=== PATIENT | male | born 1980 | race Caucasian/White ===

== ENCOUNTER 2016-09-01 14:39 | Emergency (ER) | payer MEDICARE, MEDICAID ==
[~2016-09-01 14:39] MED LIST: 'PARAFON FORTE500 M1 PO; ABILIFY15 MG PO; AMLODIPINE BESYL5 MG PO; AMOXICILLIN500 MG PO; ANTIVERT25 MG PO; ANUSOL-HC25 MG RC; AUGMENTIN 875 M1 TAB PO; AUGMENTIN 875875 MG PO; BLOOD PRESSURE MED; BP MED; CATAFLAM50 MG PO; CIPROFLOXACIN500 MG PO; COLACE100 MG PO; FIORICET 325 MG1 TAB PO; FLAGYL500 MG PO; FLEXERIL5 MG PO; Fioricet 325 MG1 TAB PO; HYDROCODONE BIT1 T11 PO; IBU-8800 MG PO; INDERAL LA60 MG PO; INVEGA3 MG PO; KEFLEX 500 MG E2 CAP PO; LEVOTHYROXIN0.025 M1 PO; LODINE 400MG400 MG PO; LOMOTIL 0.025 M1 TA1 PO; LOMOTIL 0.025 M1 TAB PO; MIDRIN (DURADR1 CAP PO; MIRAPEX1 MG PO; MIRTAZAPINE30 MG PO; MOTRIN800 MG PO; NAPROSYN250 MG PO; NAPROSYN500 MG PO; NAPROXEN500 MG PO; NORTRIPTYLINE25 MG PO; OMEPRAZOLE MAGN20 MG PO; PHENERGAN25 M1 PO; PHENERGAN25 MG RC; PRILOSEC20 MG PO; PROPANOLOL PO; PROPRANOLOL ER80 MG PO; PROPRANOLOL HC120 MG PO; PROPRANOLOL HCL80 M1 PO; RISPERDAL1 MG PO; ROBAXIN750 MG PO; SYNTHROID0.025 MG PO; Sarafem20 MG PO; TOBREX OPHTH S2.5 ML OPH; TOPAMAX50 MG PO; TORADOL10 MG PO; TRAMADOL HCL50 MG PO; TRAZODONE50 MG PO; ULTRAM50 MG PO; VICODIN 5/500 505 MG PO; VICODIN ES 7501 TAB PO; VISTARIL25 M1 PO; VITAMIN D-32000 UNI1 PO; VITAMIN D32000 IU PO; VOLTAREN50 M1 PO; XANAX0.25 MG PO; ZITHROMAX TRI-500 MG PO; ZITHROMAX Z PA250 MG PO; ZOFRAN ODT4 MG PO; ZOFRAN4 MG PO; ZOLOFT100 MG PO; ZOLOFT20 MG/ML PO; ZYRTEC10 MG PO
[2016-09-01 14:54] VITALS: BP 151/89
[2016-09-01] MEDS ORDERED: Zofran4 MG PO (16:02)
[2016-09-01] MEDS ORDERED: NAPROSYN500 MG PO (16:02)
== END 2016-09-01 16:08 | disposition home or self-care (01) ==
LOC: ED 14:39
DX: R51 Headache (principal); Z79.899 Other long term (current) drug therapy; Z88.8 Allergy status to other drugs, medicaments and biological substances

== ENCOUNTER 2017-01-07 17:20 | Emergency (ER) | payer MEDICARE, MEDICAID ==
[~2017-01-07] VITALS: Wt 82.1 kg
[~2017-01-07 17:20] MED LIST changes: +Zofran4 MG PO
[2017-01-07 17:27] VITALS: BP 157/87
[2017-01-07] MEDS ORDERED: HYDROCODONE BIT1 T11 PO (19:21)
[2017-01-07] MEDS ORDERED: Motrin,Rufen800 MG PO (19:21)
== END 2017-01-07 22:14 | disposition home or self-care (01) ==
LOC: ED 17:20
DX: S39.012A Strain of muscle, fascia and tendon of lower back, initial encounter (principal); S46.912A Strain of unspecified muscle, fascia and tendon at shoulder and upper arm level, left arm, initial encounter; S16.1XXA Strain of muscle, fascia and tendon at neck level, initial encounter; Z88.8 Allergy status to other drugs, medicaments and biological substances; Z79.899 Other long term (current) drug therapy; F17.200 Nicotine dependence, unspecified, uncomplicated; W17.2XXA Fall into hole, initial encounter; Y93.89 Activity, other specified; Y92.89 Other specified places as the place of occurrence of the external cause; Y99.8 Other external cause status

== ENCOUNTER 2017-02-16 09:49 | Emergency (ER) | payer OTHER, MEDICARE, MEDICAID ==
[~2017-02-16] VITALS: Ht 170.1 cm; Wt 79.4 kg
[~2017-02-16 09:49] MED LIST changes: +Motrin,Rufen800 MG PO
[2017-02-16] MEDS ORDERED: 'PARAFON FORTE500 M1 PO (09:54)
[2017-02-16] MEDS ORDERED: NAPROSYN500 MG PO (09:54)
[2017-02-16 12:11] VITALS: BP 136/72
== END 2017-02-16 12:23 | disposition home or self-care (01) ==
LOC: ED 09:49
DX: M54.2 Cervicalgia (principal); M25.512 Pain in left shoulder; R07.89 Other chest pain; R03.0 Elevated blood-pressure reading, without diagnosis of hypertension; Z79.899 Other long term (current) drug therapy; Z88.8 Allergy status to other drugs, medicaments and biological substances; Z88.6 Allergy status to analgesic agent; V49.88XA Car occupant (driver) (passenger) injured in other specified transport accidents, initial encounter; Y93.89 Activity, other specified; Y92.413 State road as the place of occurrence of the external cause; Y99.9 Unspecified external cause status

== ENCOUNTER 2017-03-22 21:01 | Emergency (ER) | payer MEDICARE, MEDICAID ==
[~2017-03-22] VITALS: Ht 170.1 cm; Wt 79.4 kg
[2017-03-22 21:11] VITALS: BP 153/103
== END 2017-03-22 22:48 | disposition home or self-care (01) ==
LOC: ED 21:01
DX: M54.30 Sciatica, unspecified side (principal); F41.9 Anxiety disorder, unspecified; G43.909 Migraine, unspecified, not intractable, without status migrainosus; F10.10 Alcohol abuse, uncomplicated; Y90.9 Presence of alcohol in blood, level not specified; Z91.410 Personal history of adult physical and sexual abuse; Z88.8 Allergy status to other drugs, medicaments and biological substances

== ENCOUNTER 2017-08-16 22:14 | Emergency (ER) | payer MEDICARE, MEDICAID ==
[~2017-08-16] VITALS: Ht 175.2 cm; Wt 81.6 kg
[2017-08-16 23:25] VITALS: BP 126/72
== END 2017-08-16 23:33 | disposition home or self-care (01) ==
LOC: ED 22:14
DX: F41.9 Anxiety disorder, unspecified (principal); F17.200 Nicotine dependence, unspecified, uncomplicated; Z88.8 Allergy status to other drugs, medicaments and biological substances

== ENCOUNTER 2017-08-20 19:14 | Emergency (ER) | payer MEDICARE, MEDICAID ==
[~2017-08-20] VITALS: Ht 170.1 cm; Wt 83.9 kg
[2017-08-20 19:25] VITALS: BP 158/106
== END 2017-08-20 20:48 | disposition home or self-care (01) ==
LOC: ED 19:14
DX: R51 Headache (principal); Z79.899 Other long term (current) drug therapy; Z88.6 Allergy status to analgesic agent; Z88.8 Allergy status to other drugs, medicaments and biological substances

== ENCOUNTER 2019-03-18 23:39 | Emergency (ER) | payer MEDICARE ==
[~2019-03-18] VITALS: Ht 170.1 cm; Wt 79.8 kg
[2019-03-19] MEDS ORDERED: PROPRANOLOL HCL60 MG PO (00:02)
[2019-03-19 00:12] VITALS: BP 168/84
== END 2019-03-19 00:17 | disposition home or self-care (01) ==
LOC: ED 23:39
DX: F41.9 Anxiety disorder, unspecified (principal); I10 Essential (primary) hypertension; Z79.899 Other long term (current) drug therapy; Z88.6 Allergy status to analgesic agent; Z88.8 Allergy status to other drugs, medicaments and biological substances

== ENCOUNTER → 2019-07-04 | Outpatient (CLI) | payer MEDICARE ==
[~2019-07-04] MED LIST changes: +PROPRANOLOL HCL60 MG PO
[2019-07-04 09:42] LABS: BASO # 0.1 10*3/uL (0.0-0.1); EOS # 0.3 10*3/uL (0.0-0.4); EOS % 3.8 % (1.0-4.0); HEMATOCRIT 48.5 % (42.0-52.0); HEMOGLOBIN 16.3 g/dl (14.0-18.0); LYMPH # 2.6 10*3/uL (1.3-4.4); LYMPH % 37.1 % (27.0-41.0); MEAN CELL VOLUME 88.2 fl (80.0-94.0); MEAN CORPUSCULAR HGB 29.6 pg (27.0-31.0); MEAN CORPUSCULAR HGB CONC 33.6 g/dl (33.0-37.0); MEAN PLATELET VOLUME 10.6 fl (9.6-12.3); MONO # 0.7 10*3/uL (0.1-1.0); MONO % 10.8 % (3.0-9.0); NEUT # 3.2 10*3/uL (2.3-7.9); NEUT % 47.2 % (47.0-73.0); PLATELET COUNT AUTOMATED 279 10*3/uL (130-400); RED CELL DISTRI WIDTH 12.2 % (0-14.5); WHITE BLOOD COUNT 6.9 10*3/uL (4.8-10.8)
[2019-07-04 10:11] LABS: ALBUMIN 3.9 gm/dl (3.1-4.5); ALKALINE PHOSPHATASE 98 U/L (45-117); BUN 12 mg/dl (7-24); CHLORIDE 110 mmol/L (98-107); CHOLESTEROL 173 mg/dL (<200); CREATININE 0.93 mg/dL (0.70-1.30); FREE T4 0.98 ng/dl (0.76-1.46); HDL CHOLESTEROL 33 mg/dl (40-60); LDL CHOLESTEROL 101 mg/dL (9-159); POTASSIUM 4.1 mmol/L (3.5-5.1); SGOT/AST 14 IU/L (3-35); SGPT/ALT 24 U/L (12-78); SODIUM 141 mmol/L (136-145); TOTAL PROTEIN 7.5 gm/dL (6.4-8.2); TRIGLYCERIDES 194 mg/dl (<150); VLDL CHOLESTEROL 39 mg/dL (6-40)
[2019-07-04 10:52] LABS: VITAMIN D, 25-HYDROXY 20.5 ng/mL (30-100)
== END | disposition home or self-care (01) ==
LOC: LAB 09:15
PROVIDERS: Internal Medicine
DX: I10 Essential (primary) hypertension (principal); E78.2 Mixed hyperlipidemia; E11.9 Type 2 diabetes mellitus without complications; E55.9 Vitamin D deficiency, unspecified

== ENCOUNTER 2019-11-08 00:03 | Emergency (ER) | payer MEDICARE ==
[~2019-11-08] VITALS: Ht 170.1 cm; Wt 77.1 kg
[2019-11-08] MEDS ORDERED: AMOXICILLIN500 M2 PO (00:21)
[2019-11-08 00:33] VITALS: BP 165/110
== END 2019-11-08 00:37 | disposition home or self-care (01) ==
LOC: ED 00:03 → EDBD 00:07 → ED 00:07
DX: K08.89 Other specified disorders of teeth and supporting structures (principal); I10 Essential (primary) hypertension; G43.909 Migraine, unspecified, not intractable, without status migrainosus; F32.9 Major depressive disorder, single episode, unspecified; F41.9 Anxiety disorder, unspecified; R56.9 Unspecified convulsions; Z88.8 Allergy status to other drugs, medicaments and biological substances; Z79.899 Other long term (current) drug therapy

== ENCOUNTER 2019-11-24 15:29 | Emergency (ER) | payer MEDICARE ==
[~2019-11-24] VITALS: Ht 170.1 cm; Wt 77.1 kg
[~2019-11-24 15:29] MED LIST changes: +AMOXICILLIN500 M2 PO
[2019-11-24 15:48] VITALS: BP 156/92
[2019-11-24 16:46] LABS: BASO # 0.1 10*3/uL (0.0-0.1); BASO % 1.1 % (0.0-1.0); EOS # 0.2 10*3/uL (0.0-0.4); EOS % 3.2 % (1.0-4.0); HEMATOCRIT 44.9 % (42.0-52.0); LYMPH # 1.7 10*3/uL (1.3-4.4); MEAN CELL VOLUME 88.9 fl (80.0-94.0); MEAN CORPUSCULAR HGB 29.7 pg (27.0-31.0); MEAN CORPUSCULAR HGB CONC 33.4 g/dl (33.0-37.0); MEAN PLATELET VOLUME 10.4 fl (9.6-12.3); MONO # 0.8 10*3/uL (0.1-1.0); MONO % 12.6 % (3.0-9.0); NEUT # 3.8 10*3/uL (2.3-7.9); NEUT % 56.8 % (47.0-73.0); PLATELET COUNT AUTOMATED 229 10*3/uL (130-400); RED BLOOD COUNT 5.05 10*6/uL (4.50-5.90); RED CELL DISTRI WIDTH 12.5 % (0-14.5); WHITE BLOOD COUNT 6.7 10*3/uL (4.8-10.8)
[2019-11-24 17:06] LABS: ALBUMIN 3.5 gm/dl (3.1-4.5); ALKALINE PHOSPHATASE 95 U/L (45-117); BUN 13 mg/dl (7-24); CHLORIDE 109 mmol/L (98-107); CREATININE 0.84 mg/dL (0.70-1.30); SGOT/AST 15 IU/L (3-35); SGPT/ALT 28 U/L (12-78); SODIUM 141 mmol/L (136-145); TOTAL PROTEIN 7.1 gm/dL (6.4-8.2)
== END 2019-11-24 18:39 | disposition home or self-care (01) ==
LOC: ED 15:29
PROVIDERS: Emergency Medicine
DX: E86.0 Dehydration (principal); R35.0 Frequency of micturition; R53.83 Other fatigue; G43.909 Migraine, unspecified, not intractable, without status migrainosus; I10 Essential (primary) hypertension; Z88.8 Allergy status to other drugs, medicaments and biological substances

== ENCOUNTER → 2019-12-09 | Outpatient (CLI) | payer MEDICARE | END | disposition home or self-care (01) | LOC: CARD 15:06 | DX: R07.9 Chest pain, unspecified (principal) ==

== ENCOUNTER → 2020-12-28 | Outpatient (CLI) | payer MEDICARE ==
[2020-12-28 15:05] LABS: BASO # 0.1 10*3/uL (0.0-0.1); BASO % 0.7 % (0.0-1.0); EOS # 0.2 10*3/uL (0.0-0.4); EOS % 3.1 % (1.0-4.0); HEMATOCRIT 47.6 % (42.0-52.0); LYMPH # 2.2 10*3/uL (1.3-4.4); LYMPH % 32.1 % (27.0-41.0); MEAN CELL VOLUME 88.6 fl (80.0-94.0); MEAN CORPUSCULAR HGB 29.2 pg (27.0-31.0); MEAN PLATELET VOLUME 11.2 fl (9.6-12.3); MONO # 0.8 10*3/uL (0.1-1.0); MONO % 11.8 % (3.0-9.0); NEUT # 3.5 10*3/uL (2.3-7.9); PLATELET COUNT AUTOMATED 304 10*3/uL (130-400); RED BLOOD COUNT 5.37 10*6/uL (4.50-5.90); WHITE BLOOD COUNT 6.7 10*3/uL (4.8-10.8)
[2020-12-28 15:38] LABS: ALBUMIN 4.1 gm/dl (3.1-4.5); ALKALINE PHOSPHATASE 93 U/L (45-117); BUN 12 mg/dl (7-24); CHLORIDE 111 mmol/L (98-107); CHOLESTEROL 180 mg/dL (<200); CPK 195 U/L (39-308); CREATININE 0.81 mg/dL (0.70-1.30); LDL CHOLESTEROL 110 mg/dL (9-159); POTASSIUM 4.3 mmol/L (3.5-5.1); SGOT/AST 23 IU/L (3-35); SGPT/ALT 33 U/L (12-78); SODIUM 141 mmol/L (136-145); TRIGLYCERIDES 195 mg/dl (<150)
[2020-12-28 15:43] LABS: VITAMIN D, 25-HYDROXY 28.2 ng/mL (30-100)
== END | disposition home or self-care (01) ==
LOC: LAB 13:55
PROVIDERS: ATTEND Internal Medicine
DX: I10 Essential (primary) hypertension (principal); R53.81 Other malaise; R79.89 Other specified abnormal findings of blood chemistry; E55.9 Vitamin D deficiency, unspecified; D51.9 Vitamin B12 deficiency anemia, unspecified; D52.9 Folate deficiency anemia, unspecified; E78.2 Mixed hyperlipidemia; E03.9 Hypothyroidism, unspecified

== ENCOUNTER → 2020-12-30 | Outpatient (CLI) | payer OTHER | END | disposition home or self-care (01) | LOC: US 11:33 | PROVIDERS: ATTEND Internal Medicine | DX: R42 Dizziness and giddiness (principal) ==

== ENCOUNTER → 2021-02-15 | Outpatient (CLI) | payer MEDICARE ==
[2021-02-15 10:25] LABS: BASO # 0.1 10*3/uL (0.0-0.1); BASO % 0.9 % (0.0-1.0); EOS # 0.2 10*3/uL (0.0-0.4); EOS % 2.9 % (1.0-4.0); HEMATOCRIT 49.9 % (42.0-52.0); LYMPH # 1.8 10*3/uL (1.3-4.4); LYMPH % 27.7 % (27.0-41.0); MEAN CELL VOLUME 87.5 fl (80.0-94.0); MEAN CORPUSCULAR HGB 29.5 pg (27.0-31.0); MEAN CORPUSCULAR HGB CONC 33.7 g/dl (33.0-37.0); MEAN PLATELET VOLUME 10.2 fl (9.6-12.3); MONO # 0.6 10*3/uL (0.1-1.0); MONO % 9.2 % (3.0-9.0); NEUT # 3.9 10*3/uL (2.3-7.9); PLATELET COUNT AUTOMATED 299 10*3/uL (130-400); RED CELL DISTRI WIDTH 12.6 % (0-14.5); WHITE BLOOD COUNT 6.5 10*3/uL (4.8-10.8)
[2021-02-15 10:37] LABS: ACT PARTIAL THROMBO TIME 26.8 SECONDS (20.0-32.1)
[2021-02-15 11:05] LABS: ALBUMIN 4.2 gm/dl (3.1-4.5); ALKALINE PHOSPHATASE 112 U/L (45-117); BUN 11 mg/dl (7-24); CHLORIDE 108 mmol/L (98-107); CHOLESTEROL 197 mg/dL (<200); CREATININE 0.83 mg/dL (0.70-1.30); FREE T4 0.79 ng/dl (0.76-1.46); LDL CHOLESTEROL 110 mg/dL (9-159); POTASSIUM 4.7 mmol/L (3.5-5.1); SGOT/AST 18 IU/L (3-35); SGPT/ALT 32 U/L (12-78); SODIUM 140 mmol/L (136-145); TRIGLYCERIDES 265 mg/dl (<150); URIC ACID 7.1 mg/dL (3.5-7.2)
[2021-02-15 11:17] LABS: VITAMIN D, 25-HYDROXY 30.1 ng/mL (30-100)
== END | disposition home or self-care (01) ==
LOC: LAB 10:03
PROVIDERS: ATTEND Internal Medicine
DX: Z01.810 Encounter for preprocedural cardiovascular examination (principal); I10 Essential (primary) hypertension; E78.2 Mixed hyperlipidemia; E03.9 Hypothyroidism, unspecified; E55.9 Vitamin D deficiency, unspecified

== ENCOUNTER 2021-02-17 21:02 | Emergency (ER) | payer MEDICARE ==
[~2021-02-17] VITALS: Ht 175.2 cm; Wt 81.6 kg
[2021-02-17 21:27] LABS: BASO # 0.1 10*3/uL (0.0-0.1); BASO % 0.8 % (0.0-1.0); EOS # 0.2 10*3/uL (0.0-0.4); EOS % 2.9 % (1.0-4.0); HEMATOCRIT 44.8 % (42.0-52.0); LYMPH # 2.9 10*3/uL (1.3-4.4); MEAN CELL VOLUME 88.4 fl (80.0-94.0); MEAN CORPUSCULAR HGB 29.8 pg (27.0-31.0); MEAN CORPUSCULAR HGB CONC 33.7 g/dl (33.0-37.0); MEAN PLATELET VOLUME 10.5 fl (9.6-12.3); MONO % 12.5 % (3.0-9.0); NEUT # 3.6 10*3/uL (2.3-7.9); NEUT % 46.5 % (47.0-73.0); PLATELET COUNT AUTOMATED 271 10*3/uL (130-400); RED BLOOD COUNT 5.07 10*6/uL (4.50-5.90); RED CELL DISTRI WIDTH 12.8 % (0-14.5); WHITE BLOOD COUNT 7.7 10*3/uL (4.8-10.8)
[2021-02-17 21:32] VITALS: BP 190/90
[2021-02-17 22:03] LABS: ALKALINE PHOSPHATASE 97 U/L (45-117); BUN 14 mg/dl (7-24); CHLORIDE 111 mmol/L (98-107); CREATININE 1.34 mg/dL (0.70-1.30); POTASSIUM 4.2 mmol/L (3.5-5.1); SGOT/AST 18 IU/L (3-35); SGPT/ALT 31 U/L (12-78); SODIUM 144 mmol/L (136-145); TOTAL PROTEIN 7.7 gm/dL (6.4-8.2)
[2021-02-17 22:07] LABS: TROPONIN I < 0.015 ng/ml (<0.045)
== END 2021-02-17 23:36 | disposition home or self-care (01) ==
LOC: ED 21:02
PROVIDERS: Internal Medicine
DX: R07.9 Chest pain, unspecified (principal); Z88.8 Allergy status to other drugs, medicaments and biological substances; Z79.899 Other long term (current) drug therapy

== ENCOUNTER 2021-04-09 22:11 | Emergency (ER) | payer MEDICARE ==
[~2021-04-09] VITALS: Ht 170.1 cm; Wt 79.4 kg
[2021-04-09 22:27] VITALS: BP 154/103
== END 2021-04-09 22:40 | disposition home or self-care (01) ==
LOC: ED 22:11
DX: Z47.89 Encounter for other orthopedic aftercare (principal)

== ENCOUNTER 2021-07-29 01:53 | Emergency (ER) | payer OTHER ==
[~2021-07-29] VITALS: Ht 170.1 cm; Wt 81.6 kg
[2021-07-29 02:00] VITALS: BP 160/92
[2021-07-29] MEDS ORDERED: ATIVAN1 MG PO (03:03)
== END 2021-07-29 02:43 | disposition home or self-care (01) ==
LOC: ED 01:53
DX: G43.909 Migraine, unspecified, not intractable, without status migrainosus (principal); Z91.030 Bee allergy status; Z88.8 Allergy status to other drugs, medicaments and biological substances; Z79.899 Other long term (current) drug therapy

== ENCOUNTER 2021-08-29 10:06 | Emergency (ER) | payer OTHER ==
[~2021-08-29] VITALS: Ht 170.1 cm; Wt 81.6 kg
[~2021-08-29 10:06] MED LIST changes: +ATIVAN1 MG PO
[2021-08-29] MEDS ORDERED: ASPIRIN ADULT L81 M1 PO (10:16)
[2021-08-29] MEDS ORDERED: AMLODIPINE BESYL5 MG PO (10:16)
[2021-08-29] MEDS ORDERED: ALLOPURINOL100 MG PO (10:17)
[2021-08-29] MEDS ORDERED: LEVOTHYROXINE25 MCG PO (10:18)
[2021-08-29 10:40] LABS: BASO # 0.1 10*3/uL (0.0-0.1); EOS # 0.2 10*3/uL (0.0-0.4); EOS % 2.5 % (1.0-4.0); LYMPH # 2.1 10*3/uL (1.3-4.4); LYMPH % 34.6 % (27.0-41.0); MEAN CELL VOLUME 86.3 fl (80.0-94.0); MEAN CORPUSCULAR HGB 29.7 pg (27.0-31.0); MEAN CORPUSCULAR HGB CONC 34.4 g/dl (33.0-37.0); MEAN PLATELET VOLUME 10.2 fl (9.6-12.3); MONO # 0.6 10*3/uL (0.1-1.0); MONO % 9.6 % (3.0-9.0); NEUT # 3.1 10*3/uL (2.3-7.9); NEUT % 52.1 % (47.0-73.0); PLATELET COUNT AUTOMATED 286 10*3/uL (130-400); RED BLOOD COUNT 5.56 10*6/uL (4.50-5.90); RED CELL DISTRI WIDTH 12.4 % (0-14.5); WHITE BLOOD COUNT 5.9 10*3/uL (4.8-10.8)
[2021-08-29 11:11] LABS: ALKALINE PHOSPHATASE 96 U/L (45-117); BUN 12 mg/dl (7-24); CHLORIDE 108 mmol/L (98-107); CREATININE 0.84 mg/dL (0.70-1.30); POTASSIUM 3.9 mmol/L (3.5-5.1); SGOT/AST 20 IU/L (3-35); SGPT/ALT 39 U/L (12-78); SODIUM 139 mmol/L (136-145); TOTAL PROTEIN 7.8 gm/dL (6.4-8.2)
[2021-08-29 11:15] VITALS: BP 150/101
[2021-08-29] MEDS ORDERED: ZESTRIL10 MG PO (11:17)
== END 2021-08-29 11:18 | disposition home or self-care (01) ==
LOC: ED 10:06
PROVIDERS: Student in an Organized Health Care Education/Training Program
DX: I16.0 Hypertensive urgency (principal); Z79.899 Other long term (current) drug therapy; Z79.82 Long term (current) use of aspirin; Z91.030 Bee allergy status; Z88.8 Allergy status to other drugs, medicaments and biological substances

== ENCOUNTER 2021-09-01 15:03 | Emergency (ER) | payer OTHER ==
[~2021-09-01 15:03] MED LIST changes: +ALLOPURINOL100 MG PO; +ASPIRIN ADULT L81 M1 PO; +LEVOTHYROXINE25 MCG PO; +ZESTRIL10 MG PO
[2021-09-01 15:45] LABS: BILIRUBIN Negative (Negative); BLOOD Negative (Negative); CLARITY Clear (Clear); COLOR Yellow (Yellow); GLUCOSE Negative (Negative); KETONE Trace (Negative); LEUKO ESTERASE Negative (Negative); NITRITE Negative (Negative); PH 6.5 (4.5-8.0)
[2021-09-01 15:53] LABS: URINE AMPHETAMINES < 1000 (1000ng/ml); URINE BARBITURATES < 200 (200ng/ml); URINE BENZODIAZEPINES < 200 (200ng/ml); URINE CANNABINOIDS (THC) < 50 (50ng/ml); URINE COCAINE < 300 (300ng/ml); URINE METHADONE < 300 (300ng/ml); URINE OPIATES < 300 (300ng/ml)
[2021-09-01 15:59] LABS: URINE PHENCYCLIDINE < 25 (25ng/ml)
[2021-09-01 15:59] LABS: BASO # 0.1 10*3/uL (0.0-0.1); BASO % 1.1 % (0.0-1.0); EOS # 0.1 10*3/uL (0.0-0.4); EOS % 2.1 % (1.0-4.0); LYMPH # 1.5 10*3/uL (1.3-4.4); MEAN CELL VOLUME 85.9 fl (80.0-94.0); MEAN CORPUSCULAR HGB 29.3 pg (27.0-31.0); MEAN CORPUSCULAR HGB CONC 34.2 g/dl (33.0-37.0); MEAN PLATELET VOLUME 10.4 fl (9.6-12.3); MONO # 0.8 10*3/uL (0.1-1.0); MONO % 12.8 % (3.0-9.0); NEUT # 3.8 10*3/uL (2.3-7.9); NEUT % 59.7 % (47.0-73.0); PLATELET COUNT AUTOMATED 283 10*3/uL (130-400); RED BLOOD COUNT 5.59 10*6/uL (4.50-5.90); RED CELL DISTRI WIDTH 12.4 % (0-14.5); WHITE BLOOD COUNT 6.3 10*3/uL (4.8-10.8)
[2021-09-01 16:09] LABS: MUCOUS 2+
[2021-09-01 16:10] LABS: EPITHELIAL CELLS 0-2; WBC 0-2 wbc/hpf (0-5)
[2021-09-01 16:13] LABS: ALKALINE PHOSPHATASE 104 U/L (45-117); BUN 11 mg/dl (7-24); CHLORIDE 107 mmol/L (98-107); CPK 277 U/L (39-308); CREATININE 0.83 mg/dL (0.70-1.30); POTASSIUM 3.6 mmol/L (3.5-5.1); SGOT/AST 25 IU/L (3-35); SGPT/ALT 38 U/L (12-78); SODIUM 140 mmol/L (136-145); TOTAL PROTEIN 8.1 gm/dL (6.4-8.2)
[2021-09-01 16:14] LABS: ETHYL ALCOHOL < 3.0 mg/dl (<3)
[2021-09-01 19:10] VITALS: BP 146/92
== END 2021-09-01 20:23 ==
LOC: ED 15:03
PROVIDERS: Emergency Medicine
DX: F32.9 Major depressive disorder, single episode, unspecified (principal); Z20.822 Contact with and (suspected) exposure to COVID-19; Z91.030 Bee allergy status; Z88.8 Allergy status to other drugs, medicaments and biological substances; Z79.899 Other long term (current) drug therapy; Z79.82 Long term (current) use of aspirin

== ENCOUNTER 2021-09-12 12:03 | Emergency (ER) | payer OTHER ==
[~2021-09-12] VITALS: Ht 170.1 cm; Wt 81.6 kg
[2021-09-12 12:12] VITALS: BP 161/99
[2021-09-12 12:32] LABS: BASO # 0.1 10*3/uL (0.0-0.1); EOS # 0.2 10*3/uL (0.0-0.4); EOS % 2.6 % (1.0-4.0); HEMATOCRIT 46.5 % (42.0-52.0); LYMPH # 2.1 10*3/uL (1.3-4.4); LYMPH % 36.1 % (27.0-41.0); MEAN CELL VOLUME 83.9 fl (80.0-94.0); MEAN CORPUSCULAR HGB 29.2 pg (27.0-31.0); MEAN CORPUSCULAR HGB CONC 34.8 g/dl (33.0-37.0); MEAN PLATELET VOLUME 10.4 fl (9.6-12.3); MONO # 0.7 10*3/uL (0.1-1.0); MONO % 12.6 % (3.0-9.0); NEUT # 2.7 10*3/uL (2.3-7.9); NEUT % 47.5 % (47.0-73.0); PLATELET COUNT AUTOMATED 275 10*3/uL (130-400); RED BLOOD COUNT 5.54 10*6/uL (4.50-5.90); WHITE BLOOD COUNT 5.7 10*3/uL (4.8-10.8)
[2021-09-12 12:43] LABS: ACT PARTIAL THROMBO TIME 27.5 SECONDS (20.0-32.1)
[2021-09-12 12:57] LABS: ALKALINE PHOSPHATASE 106 U/L (45-117); BUN 19 mg/dl (7-24); CHLORIDE 106 mmol/L (98-107); CREATININE 0.88 mg/dL (0.70-1.30); POTASSIUM 3.8 mmol/L (3.5-5.1); SGOT/AST 26 IU/L (3-35); SGPT/ALT 36 U/L (12-78); SODIUM 140 mmol/L (136-145)
== END 2021-09-12 15:54 | disposition home or self-care (01) ==
LOC: ED 12:03
PROVIDERS: Emergency Medicine
DX: I10 Essential (primary) hypertension (principal); R07.9 Chest pain, unspecified; R06.02 Shortness of breath; Z91.030 Bee allergy status; Z88.8 Allergy status to other drugs, medicaments and biological substances

== ENCOUNTER 2021-11-08 17:58 | Emergency (ER) | payer OTHER ==
[2021-11-08 19:19] LABS: BASO # 0.1 10*3/uL (0.0-0.1); BASO % 0.7 % (0.0-1.0); EOS # 0.1 10*3/uL (0.0-0.4); EOS % 1.9 % (1.0-4.0); HEMATOCRIT 45.6 % (42.0-52.0); LYMPH # 2.5 10*3/uL (1.3-4.4); MEAN CELL VOLUME 86.4 fl (80.0-94.0); MEAN CORPUSCULAR HGB 30.1 pg (27.0-31.0); MEAN CORPUSCULAR HGB CONC 34.9 g/dl (33.0-37.0); MEAN PLATELET VOLUME 10.2 fl (9.6-12.3); MONO # 0.8 10*3/uL (0.1-1.0); MONO % 11.6 % (3.0-9.0); NEUT # 3.7 10*3/uL (2.3-7.9); NEUT % 51.5 % (47.0-73.0); PLATELET COUNT AUTOMATED 290 10*3/uL (130-400); RED BLOOD COUNT 5.28 10*6/uL (4.50-5.90); RED CELL DISTRI WIDTH 12.5 % (0-14.5); WHITE BLOOD COUNT 7.3 10*3/uL (4.8-10.8)
[2021-11-08 19:59] LABS: ALKALINE PHOSPHATASE 89 U/L (45-117); BUN 12 mg/dl (7-24); CHLORIDE 106 mmol/L (98-107); CREATININE 0.87 mg/dL (0.70-1.30); POTASSIUM 3.9 mmol/L (3.5-5.1); SGOT/AST 21 IU/L (3-35); SGPT/ALT 33 U/L (12-78); SODIUM 139 mmol/L (136-145); TOTAL PROTEIN 7.4 gm/dL (6.4-8.2)
[2021-11-08 20:41] VITALS: BP 142/99
== END 2021-11-08 21:38 | disposition home or self-care (01) ==
LOC: ED 17:58
PROVIDERS: Nurse Practitioner Family
DX: I10 Essential (primary) hypertension (principal); Z91.030 Bee allergy status; Z88.8 Allergy status to other drugs, medicaments and biological substances; Z79.899 Other long term (current) drug therapy; Z79.82 Long term (current) use of aspirin

== ENCOUNTER 2022-03-23 18:02 | Emergency (ER) | payer OTHER ==
[~2022-03-23] VITALS: Ht 175.2 cm; Wt 81.6 kg
[2022-03-23 18:29] LABS: BASO # 0.1 10*3/uL (0.0-0.1); BASO % 0.6 % (0.0-1.0); EOS # 0.2 10*3/uL (0.0-0.4); EOS % 1.9 % (1.0-4.0); HEMATOCRIT 46.4 % (42.0-52.0); LYMPH # 2.6 10*3/uL (1.3-4.4); LYMPH % 33.6 % (27.0-41.0); MEAN CELL VOLUME 85.3 fl (80.0-94.0); MEAN CORPUSCULAR HGB CONC 35.1 g/dl (33.0-37.0); MEAN PLATELET VOLUME 10.1 fl (9.6-12.3); MONO # 0.9 10*3/uL (0.1-1.0); NEUT # 4.1 10*3/uL (2.3-7.9); NEUT % 52.8 % (47.0-73.0); PLATELET COUNT AUTOMATED 294 10*3/uL (130-400); RED BLOOD COUNT 5.44 10*6/uL (4.50-5.90); RED CELL DISTRI WIDTH 12.4 % (0-14.5); WHITE BLOOD COUNT 7.7 10*3/uL (4.8-10.8)
[2022-03-23 18:43] LABS: ACT PARTIAL THROMBO TIME 27.1 SECONDS (20.0-32.1)
[2022-03-23 18:46] LABS: ALKALINE PHOSPHATASE 94 U/L (45-117); BUN 22 mg/dl (7-24); CHLORIDE 108 mmol/L (98-107); CREATININE 0.88 mg/dL (0.70-1.30); POTASSIUM 3.6 mmol/L (3.5-5.1); SGOT/AST 21 IU/L (3-35); SGPT/ALT 33 U/L (12-78); SODIUM 142 mmol/L (136-145); TOTAL PROTEIN 7.6 gm/dL (6.4-8.2)
[2022-03-23 20:29] VITALS: BP 128/74
== END 2022-03-23 20:50 | disposition home or self-care (01) ==
LOC: ED 18:02
PROVIDERS: Family Medicine
DX: R07.9 Chest pain, unspecified (principal); R11.0 Nausea; Z91.030 Bee allergy status; Z88.8 Allergy status to other drugs, medicaments and biological substances; Z79.899 Other long term (current) drug therapy; Z79.82 Long term (current) use of aspirin

== ENCOUNTER 2022-09-17 21:14 | Emergency (ER) | payer OTHER ==
[~2022-09-17] VITALS: Ht 175.2 cm; Wt 77.1 kg
[2022-09-17 21:56] LABS: BASO % 0.4 % (0.0-1.0); EOS % 0.4 % (1.0-4.0); HEMATOCRIT 47.1 % (42.0-52.0); LYMPH # 0.5 10*3/uL (1.3-4.4); LYMPH % 6.6 % (27.0-41.0); MEAN CELL VOLUME 86.3 fl (80.0-94.0); MEAN CORPUSCULAR HGB CONC 34.8 g/dl (33.0-37.0); MEAN PLATELET VOLUME 9.9 fl (9.6-12.3); MONO # 0.3 10*3/uL (0.1-1.0); MONO % 3.2 % (3.0-9.0); NEUT # 7.2 10*3/uL (2.3-7.9); NEUT % 89.2 % (47.0-73.0); PLATELET COUNT AUTOMATED 276 10*3/uL (130-400); RED BLOOD COUNT 5.46 10*6/uL (4.50-5.90); RED CELL DISTRI WIDTH 12.5 % (0-14.5)
[2022-09-17 22:11] LABS: ALKALINE PHOSPHATASE 85 U/L (46-116); BUN 14 mg/dl (9-23); CHLORIDE 106 mmol/L (98-107); POTASSIUM 3.9 mmol/L (3.4-5.1); SGPT/ALT 34 U/L (10-49); TOTAL PROTEIN 7.5 gm/dL (6.0-8.0)
[2022-09-17 22:34] VITALS: BP 158/99
[2022-09-17] MEDS ORDERED: ONDANSETRON4 MG SL (22:47)
== END 2022-09-17 23:03 | disposition home or self-care (01) ==
LOC: ED 21:14
PROVIDERS: Physician Assistant
DX: U07.1 COVID-19 (principal); I10 Essential (primary) hypertension; G43.909 Migraine, unspecified, not intractable, without status migrainosus; F32.A Depression, unspecified; F41.9 Anxiety disorder, unspecified; Z91.030 Bee allergy status; Z88.8 Allergy status to other drugs, medicaments and biological substances

== ENCOUNTER 2023-03-29 19:05 | Emergency (ER) | payer OTHER ==
[~2023-03-29] VITALS: Ht 170.1 cm; Wt 86.2 kg
[~2023-03-29 19:05] MED LIST changes: +ONDANSETRON4 MG SL
[2023-03-29 19:10] VITALS: BP 160/108
[2023-03-29] MEDS ORDERED: CLOPIDOGREL75 MG PO (19:11)
[2023-03-29] MEDS ORDERED: Depakote500 MG PO (19:11)
[2023-03-29] MEDS ORDERED: NEURONTIN300 MG PO (19:12)
[2023-03-29 19:41] LABS: BASO # 0.1 10*3/uL (0.0-0.1); BASO % 1.1 % (0.0-1.0); EOS # 0.2 10*3/uL (0.0-0.4); EOS % 3.8 % (1.0-4.0); HEMATOCRIT 45.1 % (42.0-52.0); LYMPH # 2.6 10*3/uL (1.3-4.4); LYMPH % 40.6 % (27.0-41.0); MEAN CELL VOLUME 85.1 fl (80.0-94.0); MEAN CORPUSCULAR HGB 29.6 pg (27.0-31.0); MEAN CORPUSCULAR HGB CONC 34.8 g/dl (33.0-37.0); MEAN PLATELET VOLUME 10.1 fl (9.6-12.3); MONO # 0.9 10*3/uL (0.1-1.0); MONO % 13.9 % (3.0-9.0); NEUT # 2.6 10*3/uL (2.3-7.9); NEUT % 40.4 % (47.0-73.0); PLATELET COUNT AUTOMATED 304 10*3/uL (130-400); RED CELL DISTRI WIDTH 12.1 % (0-14.5); WHITE BLOOD COUNT 6.4 10*3/uL (4.8-10.8)
[2023-03-29 20:28] LABS: ALKALINE PHOSPHATASE 92 U/L (46-116); BUN 11 mg/dl (9-23); CHLORIDE 106 mmol/L (98-107); POTASSIUM 3.8 mmol/L (3.4-5.1); SGPT/ALT 34 U/L (5-49); TOTAL PROTEIN 7.3 gm/dL (6.0-8.0)
== END 2023-03-29 22:23 | disposition home or self-care (01) ==
LOC: ED 19:05
PROVIDERS: Internal Medicine
DX: R07.89 Other chest pain (principal); R11.0 Nausea; R06.02 Shortness of breath; I10 Essential (primary) hypertension; G43.909 Migraine, unspecified, not intractable, without status migrainosus; F32.A Depression, unspecified; F41.9 Anxiety disorder, unspecified; Z91.030 Bee allergy status; Z88.8 Allergy status to other drugs, medicaments and biological substances; F17.290 Nicotine dependence, other tobacco product, uncomplicated

== ENCOUNTER 2023-04-17 13:48 | Inpatient (IN) | payer OTHER ==
[~2023-04-17] VITALS: Ht 170.1 cm; Wt 87.7 kg
[~2023-04-17 13:48] MED LIST changes: +CLOPIDOGREL75 MG PO; +Depakote500 MG PO; +NEURONTIN300 MG PO
[2023-04-17 13:55] VITALS: BP 153/85
[2023-04-17 14:21] LABS: BASO # 0.1 10*3/uL (0.0-0.1); BASO % 0.9 % (0.0-1.0); EOS # 0.2 10*3/uL (0.0-0.4); EOS % 2.7 % (1.0-4.0); HEMATOCRIT 48.8 % (42.0-52.0); LYMPH # 3.9 10*3/uL (1.3-4.4); LYMPH % 44.5 % (27.0-41.0); MEAN CELL VOLUME 85.5 fl (80.0-94.0); MEAN CORPUSCULAR HGB 29.4 pg (27.0-31.0); MEAN CORPUSCULAR HGB CONC 34.4 g/dl (33.0-37.0); MEAN PLATELET VOLUME 10.2 fl (9.6-12.3); MONO # 1.1 10*3/uL (0.1-1.0); MONO % 12.6 % (3.0-9.0); NEUT # 3.4 10*3/uL (2.3-7.9); PLATELET COUNT AUTOMATED 304 10*3/uL (130-400); RED BLOOD COUNT 5.71 10*6/uL (4.50-5.90); RED CELL DISTRI WIDTH 12.5 % (0-14.5); WHITE BLOOD COUNT 8.8 10*3/uL (4.8-10.8)
[2023-04-17 14:32] LABS: ACT PARTIAL THROMBO TIME 27.6 SECONDS (20.0-32.1)
[2023-04-17 14:41] LABS: ALKALINE PHOSPHATASE 101 U/L (46-116); BUN 11 mg/dl (9-23); CHLORIDE 107 mmol/L (98-107); POTASSIUM 3.7 mmol/L (3.4-5.1); SGPT/ALT 40 U/L (5-49); TOTAL PROTEIN 7.8 gm/dL (6.0-8.0)
[2023-04-17 15:33] LABS: LIPASE 41 U/L (12-53)
[2023-04-17 17:25] VITALS: BP 147/95
[2023-04-17 17:30] VITALS: BP 153/108
[2023-04-17] MEDS ORDERED: HYDROXYZINE PAM25 M1 PO (17:40)
[2023-04-17] MEDS ORDERED: LEVOTHYROXINE25 MCG PO (17:41)
[2023-04-17 20:00] VITALS: BP 155/101
[2023-04-17 21:50] VITALS: BP 170/88
[2023-04-18] VITALS: BP 120/91
[2023-04-18 06:32] LABS: CHOLESTEROL 194 mg/dL (<200); TRIGLYCERIDES 580 mg/dl (<150)
[2023-04-18 08:00] VITALS: BP 118/71
[2023-04-18] MEDS ORDERED: METOPROLOL SUCC50 M1 PO (08:51)
[2023-04-18] MEDS ORDERED: TRICOR145 M1 PO (08:51)
[2023-04-18 12:00] VITALS: BP 122/92
== END 2023-04-18 14:10 | disposition home or self-care (01) | DRG 313 ==
LOC: ED 13:48 → EDHOLD 16:22 → 5E 16:22
PROVIDERS: Emergency Medicine; ADMIT Internal Medicine; ATTEND Internal Medicine
PROC: 4A02XM4 Measurement of Cardiac Total Activity, External Approach (ICD-10-PCS; principal; 2023-04-18)
PROC: 3E073KZ Introduction of Other Diagnostic Substance into Coronary Artery, Percutaneous Approach (ICD-10-PCS; 2023-04-18)
DX: R07.89 Other chest pain (principal); I10 Essential (primary) hypertension; G89.29 Other chronic pain; E78.2 Mixed hyperlipidemia; E03.9 Hypothyroidism, unspecified; E66.9 Obesity, unspecified; E66.01 Morbid (severe) obesity due to excess calories; F41.9 Anxiety disorder, unspecified; Z88.8 Allergy status to other drugs, medicaments and biological substances; Z83.3 Family history of diabetes mellitus; Z68.30 Body mass index [BMI] 30.0-30.9, adult